=== PATIENT | female | born 1955 | race Caucasian/White ===

== ENCOUNTER 2018-10-01 | Emergency (ER) | payer BC ==
[~2018-10-01] MED LIST: EFFEXOR50 MG PO; ENALAPRIL MALEA10 MG PO; FLUCONAZOLE150 MG PO; GEMFIBROZIL600 MG PO; HYDR25T PO; MELOXICAM15 MG PO; NITROFURANTOIN100 M9 PO; OXYBUTYNIN CHLOR5 M1 PO
== END 2018-10-01 14:45 | disposition home or self-care (01) ==
DX: S83.91XA Sprain of unspecified site of right knee, initial encounter (principal); Z88.7 Allergy status to serum and vaccine; Z79.899 Other long term (current) drug therapy; Z96.651 Presence of right artificial knee joint; X58.XXXA Exposure to other specified factors, initial encounter; Y93.01 Activity, walking, marching and hiking; Y92.89 Other specified places as the place of occurrence of the external cause; Y99.8 Other external cause status

== ENCOUNTER → 2022-05-17 | Outpatient (CLI) | payer BC | END | disposition home or self-care (01) | LOC: RAD 15:42 | PROVIDERS: ATTEND Family Medicine | DX: J18.9 Pneumonia, unspecified organism (principal) ==

== ENCOUNTER → 2023-06-09 | Outpatient (CLI) | payer MEDICARE ==
[2023-06-09 14:09] LABS: BASO # 0.1 10*3/uL (0.0-0.1); BASO % 0.8 % (0.0-1.0); EOS # 0.2 10*3/uL (0.0-0.4); EOS % 2.2 % (1.0-4.0); HEMATOCRIT 45.7 % (37.0-47.0); LYMPH # 0.9 10*3/uL (1.3-4.4); LYMPH % 12.2 % (27.0-41.0); MEAN CELL VOLUME 89.8 fl (81.0-99.0); MEAN CORPUSCULAR HGB 30.6 pg (27.0-31.0); MEAN CORPUSCULAR HGB CONC 34.1 g/dl (33.0-37.0); MONO # 0.9 10*3/uL (0.1-1.0); MONO % 12.2 % (3.0-9.0); NEUT # 5.1 10*3/uL (2.3-7.9); NEUT % 70.7 % (47.0-73.0); PLATELET COUNT AUTOMATED 205 10*3/uL (130-400); RED BLOOD COUNT 5.09 10*6/uL (4.10-5.10); WHITE BLOOD COUNT 7.2 10*3/uL (4.8-10.8)
[2023-06-09 14:20] LABS: URINE CREATININE RANDOM 123.86 mg/dL
[2023-06-09 14:34] LABS: ALKALINE PHOSPHATASE 76 U/L (46-116); BUN 12 mg/dl (9-23); CHLORIDE 105 mmol/L (98-107); CHOLESTEROL 167 mg/dL (<200); LDL CHOLESTEROL 102 mg/dL (9-159); POTASSIUM 3.9 mmol/L (3.4-5.1); SGPT/ALT 22 U/L (10-49); TOTAL PROTEIN 7.2 gm/dL (6.0-8.0); TRIGLYCERIDES 119 mg/dl (<150)
== END | disposition home or self-care (01) ==
LOC: LAB 13:44
PROVIDERS: ATTEND Nurse Practitioner Family
DX: I10 Essential (primary) hypertension (principal); E11.9 Type 2 diabetes mellitus without complications; E66.9 Obesity, unspecified

== ENCOUNTER → 2023-06-16 | Outpatient (CLI) | payer MEDICARE | END | disposition home or self-care (01) | LOC: RESCLI 00:24 | PROVIDERS: ATTEND Internal Medicine | DX: I10 Essential (primary) hypertension (principal); G89.29 Other chronic pain; K21.9 Gastro-esophageal reflux disease without esophagitis; E78.2 Mixed hyperlipidemia; E11.9 Type 2 diabetes mellitus without complications; Z79.899 Other long term (current) drug therapy; Z79.4 Long term (current) use of insulin; Z90.710 Acquired absence of both cervix and uterus; Z98.890 Other specified postprocedural states; Z96.653 Presence of artificial knee joint, bilateral; Z83.3 Family history of diabetes mellitus; Z82.49 Family history of ischemic heart disease and other diseases of the circulatory system; Z82.3 Family history of stroke; Z88.7 Allergy status to serum and vaccine ==

== ENCOUNTER → 2023-07-14 | Outpatient (CLI) | payer MEDICARE ==
[2023-07-14 09:21] LABS: BASO # 0.1 10*3/uL (0.0-0.1); EOS # 0.2 10*3/uL (0.0-0.4); EOS % 2.7 % (1.0-4.0); HEMATOCRIT 45.1 % (37.0-47.0); LYMPH # 1.4 10*3/uL (1.3-4.4); LYMPH % 18.7 % (27.0-41.0); MEAN CELL VOLUME 90.9 fl (81.0-99.0); MEAN CORPUSCULAR HGB 30.4 pg (27.0-31.0); MEAN CORPUSCULAR HGB CONC 33.5 g/dl (33.0-37.0); MEAN PLATELET VOLUME 10.2 fl (9.6-12.3); MONO % 13.2 % (3.0-9.0); NEUT # 4.7 10*3/uL (2.3-7.9); NEUT % 64.3 % (47.0-73.0); PLATELET COUNT AUTOMATED 197 10*3/uL (130-400); RED BLOOD COUNT 4.96 10*6/uL (4.10-5.10); RED CELL DISTRI WIDTH 13.4 % (0-14.5); WHITE BLOOD COUNT 7.3 10*3/uL (4.8-10.8)
[2023-07-14 10:31] LABS: ALKALINE PHOSPHATASE 70 U/L (46-116); BUN 14 mg/dl (9-23); CHLORIDE 104 mmol/L (98-107); LIPASE 44 U/L (12-53); POTASSIUM 4.8 mmol/L (3.4-5.1); SGPT/ALT 19 U/L (10-49)
== END | disposition home or self-care (01) ==
LOC: LAB 08:48
PROVIDERS: ATTEND Nurse Practitioner Family
DX: K90.49 Malabsorption due to intolerance, not elsewhere classified (principal); R11.0 Nausea; R10.13 Epigastric pain

== ENCOUNTER 2023-11-13 18:13 | Emergency (ER) | payer MEDICARE ==
[~2023-11-13] VITALS: Ht 170.1 cm
[2023-11-13] MEDS ORDERED: CEPHALEXIN 500 MG CAP PO ONE (19:05)
[2023-11-13] MEDS ORDERED: Gelatin Sponge 1 EACH SPON T ONE (19:05)
[2023-11-13] MEDS ORDERED: CEPHALEXIN500 M1 PO (19:06)
== END 2023-11-13 19:27 | disposition home or self-care (01) ==
LOC: ED 18:13
DX: S61.216A Laceration without foreign body of right little finger without damage to nail, initial encounter (principal); Z88.7 Allergy status to serum and vaccine; Z88.8 Allergy status to other drugs, medicaments and biological substances; Z90.710 Acquired absence of both cervix and uterus; W26.8XXA Contact with other sharp object(s), not elsewhere classified, initial encounter; Y93.89 Activity, other specified; Y92.89 Other specified places as the place of occurrence of the external cause; Y99.8 Other external cause status

== ENCOUNTER → 2024-01-18 | Outpatient (CLI) | payer MEDICARE ==
[~2024-01-18] MED LIST changes: +CEPHALEXIN500 M1 PO
[2024-01-18 15:36] LABS: BASO # 0.1 10*3/uL (0.0-0.1); BASO % 0.7 % (0.0-1.0); EOS # 0.2 10*3/uL (0.0-0.4); EOS % 2.1 % (1.0-4.0); HEMATOCRIT 42.9 % (37.0-47.0); LYMPH # 1.5 10*3/uL (1.3-4.4); LYMPH % 20.2 % (27.0-41.0); MEAN CELL VOLUME 92.9 fl (81.0-99.0); MEAN CORPUSCULAR HGB 30.1 pg (27.0-31.0); MEAN CORPUSCULAR HGB CONC 32.4 g/dl (33.0-37.0); MEAN PLATELET VOLUME 10.3 fl (9.6-12.3); MONO # 0.7 10*3/uL (0.1-1.0); MONO % 9.8 % (3.0-9.0); NEUT # 5.1 10*3/uL (2.3-7.9); NEUT % 66.8 % (47.0-73.0); PLATELET COUNT AUTOMATED 174 10*3/uL (130-400); RED BLOOD COUNT 4.62 10*6/uL (4.10-5.10); RED CELL DISTRI WIDTH 12.7 % (0-14.5); WHITE BLOOD COUNT 7.6 10*3/uL (4.8-10.8)
[2024-01-18 16:00] LABS: ALKALINE PHOSPHATASE 102 U/L (46-116); BUN 14 mg/dl (9-23); CHLORIDE 103 mmol/L (98-107); CHOLESTEROL 113 mg/dL (<200); LDL CHOLESTEROL 43 mg/dL (9-159); POTASSIUM 4.7 mmol/L (3.4-5.1); SGPT/ALT 19 U/L (5-49); TOTAL PROTEIN 6.8 gm/dL (6.0-8.0); TRIGLYCERIDES 141 mg/dl (<150)
== END | disposition home or self-care (01) ==
LOC: RESCLI 02:34
PROVIDERS: Student in an Organized Health Care Education/Training Program; ATTEND Family Medicine
DX: E11.9 Type 2 diabetes mellitus without complications (principal)